=== PATIENT | male | born 1990 | race Caucasian/White ===

== ENCOUNTER 2017-06-06 20:24 | Emergency (ER) | payer BC ==
[2017-06-06] MEDS ORDERED: HYDROcodone/APAP 10-325MG 1 EACH TAB PO ONE (20:45)
--- NOTE | 2017-06-06 20:49 | ED ---
Head Injury HPI - General Chief complaint: Head Injury Stated complaint: Facial INjury Time Seen by Provider: 06/06/17 20:39 Source: patient Mode of arrival: ambulatory Limitations: no limitations - History of Present Illness Initial comments: 27-year-old male presenting after being struck in the right eye by a baseball at 1 PM today. Patient denies LOC, vomiting, amnesia to event. Denies any blood thinner use. Patient states she took a Motrin and a Vicodin at 2 PM. Denies any change in vision. - Related Data Previous Rx's Medication Instructions Recorded Fluticasone Nasal [place] [Flonase 2 spr EA NOSTRIL DAILY #1 bottle 06/06/17 Nasal [place]] HYDROcodone/APAP 5-325MG [[place] 1 - 2 tab PO Q6HR PRN #30 tab 06/06/17 5-325] Ibuprofen [Motrin] 600 mg PO Q6HR PRN #30 tab 06/06/17 Allergies/Adverse reactions: Allergies Allergy/AdvReac Type Severity Reaction Status Date / Time No Known Allergies Allergy Verified 06/06/17 20:35 Review of Systems ROS Statement: Those systems with pertinent positive or pertinent negative responses have been documented in the HPI. Review of Systems Constitutional: Denies fever, chills Eyes: Denies change in vision, Denies pain Ears, nose, mouth, throat: Denies headaches, Denies sore throat Cardiovascular: Denies chest pain. Denies palpitations Respiratory: Denies shortness of breath, Denies cough Gastrointestinal: Denies abdominal pain. Denies nausea, vomiting, diarrhea. Genitourinary: Denies hematuria, Denies infections Musculoskeletal: Denies pain, Denies swelling Integumentary: Denies rash Neurological: Positive headache, focal weakness, focal numbness Psychiatric: Denies anxiety, Denies depression Hematologic/Lymphatic: Denies easy bleeding or bruising ROS Other: All systems not noted in ROS Statement are negative. Past Medical History Past Medical History: No Reported History History of Any Multi-Drug Resistant Organisms: None Reported Past Surgical History: No Surgical Hx Reported Past Psychological History: No Psychological Hx Reported Smoking Status: Current every day smoker Past Alcohol Use History: Occasional Past Drug Use History: Marijuana General Exam - General Exam Comments Initial Comments: General: Awake, alert, No acute Distress HENT: Normocephalic. Swelling to right temporal area and zygomatic area. No midface instability. No nasal deformity. No battles sign. No hemotympanum. No pain with range of motion of jaw. Extensive swelling right side of face. Eyes: PERRL. EOMI. No scleral icterus. No injected conjunctiva. No hyphema. Bruising around right eye. Neck: Full ROM. No cervical spine tenderness. Chest/Lungs: Clear to auscultation bilaterally. No wheezing, rhonchi, or rales Cardiac: Regular rate, rhythm. No murmurs or rubs Abdomen/GI: [Soft, nontender, nondistended. No rebound, guarding, or rigidity. Musculoskeletal: Full ROM Skin: Warm, dry, intact Neurologic: A/Ox3, no weakness, no sensory deficit, no abnormal gait, no coordination deficit.Trigeminal nerve distribution intact. Limitations: no limitations Course Vital Signs 06/06/17 20:35 Temperature 98.2 F Pulse Rate 90 Respiratory 16 Rate Blood Pressure 129/78 O2 Sat by Pulse 98 Oximetry Medical Decision Making - Medical Decision Making 27-year-old male presenting with facial injury. This exam the patient is awake , alert, no acute distress. VSS. Patient CT showed zygomatic frontal suture and zygomatic maxillary suture fractures as well as an indented fracture of the right zygomatic arch. Small step-off fracture the inferior aspect of the lateral orbital wall. And CT of head showed no acute cranial process. They did read some low-lying cerebellar tonsils. He has no symptoms to correlate with this finding. Spoke with Dr. Garrett, maxillofacial surgeon, who states the patient can follow up in clinic with him in one week. States put him on nasal precautions and give him Flonase. Discussed with the patient was agreeable to plan. He was given return to ER instructions. At this time no further emergent workup is indicated he is stable for outpatient follow-up. Disposition Clinical Impression: Zygomatic fracture, right side, initial encounter for closed fracture, Fracture of lateral wall of orbit, Contusion Disposition: HOME SELF-CARE Condition: Good Instructions: Concussion (ED), Facial Fracture (ED), Facial Contusion (ED) Additional Instructions: Follow up with Dr. Garrett in one week. Call on Thursday to make an appointment. Please Avoid: * Blowing your nose: It is best to wipe away nasal secretions carefully. After 2 weeks, if you must blow your nose, blow gently through both sides at the same time. Do not pinch your nose: do not blow just one side at a time. * Sneezing: If you must sneeze, keep your mouth open and do not pinch your nose closed. * Sucking: Do not drink though a straw. Do not smoke. * Blowing: Do not play a wind instrument. Do not blow up balloons. * Pushing or lifting: Do not lift or push objects weighing more than 20 pounds. * Bending over: Keep your head above the level of your heart. Sleep with your head slightly raised. Slight bleeding from the nose is not uncommon for several days after surgery. Notify the doctor or the surgical assist if you are unable to take any of your medication as prescribed. It is likely that you may be advised to take an antibiotic and decongestant as well as your regular pain medication. You must take these medications as prescribed. Do not stop taking them on your own. If you have a problem with any medication, please call us so that we can make an adjustment for you . Other Instructions: * Over the counter decongestant may be taken. * Antibiotics may be taken as directed. REMEMBER All forms of oral and administered contraception are to be considered unreliable while you are taking any form of antibiotic. * Afrin nasal spray may be taken for 3 days, but after this the nasal spray should be stopped. Prescriptions: Fluticasone Nasal [place] [Flonase Nasal [place]] 2 spr EA NOSTRIL DAILY #1 bottle HYDROcodone/APAP 5-325MG [[place] 5-325] 1 - 2 tab PO Q6HR PRN #30 tab PRN Reason: Pain Ibuprofen [Motrin] 600 mg PO Q6HR PRN #30 tab PRN Reason: Pain Control Is patient prescribed a controlled substance at d/c from ED?: Yes If prescribed controlled substance>3 days was MAPS reviewed?: Yes When asked, does pt state using other controlled substances?: No Referrals: Lani Young DO [REFERRING] - 1-2 days Yvonne Garrett DDS [REFERRING] - 1-2 days
--- NOTE | 2017-06-06 21:36 | CT ---
EXAMINATION TYPE: CT brain wo con DATE OF EXAM: 06/06/2017 COMPARISON: NONE HISTORY: 27-year-old male Right orbital injury from softball. No LOC. TECHNIQUE: Examination was done in axial plane without intravenous contrast. Coronal and sagittal r econstructions performed. CT DLP: 1049.8 mGycm Automated exposure control for dose reduction was used. FINDINGS: There is no evidence of acute intracranial hemorrhage, acute ischemic changes, mass, mass-effect, or extra-axial fluid collection. There is no effacement of cerebral sulci or basal subarachnoid cister ns. There is no hydrocephalus. There is no midline shift. Silva-white matter distinction is preserv ed. There is cerebellar tonsillar ectopia measuring up to 5 mm on the left and 4.3 mm on the right. No fr ank tonsillar beaking. Mastoid air cells well pneumatized. Facial bones reported separately. IMPRESSION: No acute intracranial abnormality seen. Low-lying cerebellar tonsils measuring up to 5 mm below the f oramen magnum. This is indeterminate between benign cerebellar tonsillar ectopia and Chiari I malform ation. No yoselin tonsillar beaking. The former is favored. Correlate for any chronic symptoms in this patient. Facial bones reported separately.
--- NOTE | 2017-06-06 21:45 | CT ---
EXAMINATION TYPE: CT facial bones wo con DATE OF EXAM: 06/06/2017 COMPARISON: NONE HISTORY: 27-year-old male with right orbital injury from softball. No LOC. TECHNIQUE: Contiguous high-resolution axial scanning of the facial bones without IV contrast. Coronal reconstructions performed. CT DLP: 501.9 mGycm Automated exposure control for dose reduction was used. FINDINGS: There is right periorbital preseptal soft tissue contusion. The globes appear symmetric. There is a fracture through the zygomaticofrontal suture and additional vertical fracture through the zygomaticomaxillary suture. Indented segmental fractures of the right zygomatic arch. The apex of th e segmental fracture of the temporalis. Tiny step-off along the inferior aspect of the lateral orbital wall on the right. The maxillary sinus rodriguez, pterygoid plates, nasal bone, and mandible remain intact. Extensive soft tissue contusion along the right side of the face. IMPRESSION: 1. EXTENSIVE SOFT TISSUE CONTUSION ALONG THE RIGHT SIDE OF THE FACE AND RIGHT PERIORBITAL REGION. THE GLOBES REMAIN SYMMETRIC. 2. UNDERLYING RIGHT SIDED ZMC FRACTURE WITH ANGULATED AND INDENTED SEGMENTAL FRACTURE OF THE ZYGOMATI C ARCH WHICH MAY IMPINGE THE TEMPORALIS MUSCLE AND FRACTURES THROUGH THE ZYGOMATICOFRONTAL AND ZYGOMA TICOMAXILLARY SUTURES. 3. ADDITIONAL SMALL FRACTURE ALONG THE INFERIOR ASPECT OF THE RIGHT LATERAL ORBITAL WALL.
[2017-06-06 22:49] VITALS: BP 111/55; PULSE 81; RESP 18; TEMP 98.4
[2017-06-06] MEDS ORDERED: ACET/COD 300 MG/30 MG STARTER PACK 6 TAB BTL PO STA (22:59)
== END 2017-06-06 23:12 | disposition home or self-care (01) ==
LOC: EC 20:24
DX: S02.40EA Zygomatic fracture, right side, initial encounter for closed fracture (principal); S02.81XA Fracture of other specified skull and facial bones, right side, initial encounter for closed fracture; F17.200 Nicotine dependence, unspecified, uncomplicated; W21.03XA Struck by baseball, initial encounter; Y93.64 Activity, baseball
CPT/HCPCS: 70450; 70486; 99284

== ENCOUNTER → 2018-08-02 | Outpatient (CLI) | payer BC ==
--- NOTE | 2018-08-02 10:08 | US ---
EXAMINATION TYPE: US abdomen complete DATE OF EXAM: 08/02/2018 COMPARISON: NONE CLINICAL HISTORY: 28-year-old male R85.0 Increased pancreatic lipase. TECHNIQUE: Multiple sonographic images of the abdomen are obtained. FINDINGS: EXAM MEASUREMENTS: Liver Length: 14.6 cm Gallbladder Wall: 0.2 cm CBD: 0.2 cm Spleen: 12.5 cm Right Kidney: 12.0 x 4.6 x 4.5 cm Left Kidney: 11.7 x 4.8 x 5.0 cm Termination Clerk notes: Severe overlying bowel gas obscuring structures. Pancreas: mostly obscured by bowel gas Liver: Visualized portions show no gross abnormality. Some areas are obscured due to extensive overly ing bowel gas Gallbladder: wnl Evidence for sonographic Temple's sign: No CBD: wnl Spleen: wnl Right Kidney: No hydronephrosis. Left Kidney: No hydronephrosis. Upper IVC: wnl Abd Aorta: wnl IMPRESSION: 1. Technically limited exam due to prominent bowel gas shadowing. 2. Suboptimal visualization of the pancreas and portions of the liver. Otherwise, unremarkable sonogr aphic examination of the abdomen.
[2018-08-02 10:25] LABS: Basophils % (A) 1 %; Eosinophils # (A) 0.2 k/uL (0-0.7); Eosinophils % (A) 3 %; HGB 15.1 gm/dL (13.0-17.5); Lymphocytes # (A) 1.7 k/uL (1.0-4.8); Lymphocytes % (A) 29 %; MCH 29.2 pg (25.0-35.0); MCHC 32.2 g/dL (31.0-37.0); MCV 90.8 fL (80.0-100.0); Mean Platelet Volume 7.8; Monocytes # (A) 0.3 k/uL (0-1.0); Monocytes % (A) 5 %; Neutrophils # (A) 3.7 k/uL (1.3-7.7); Neutrophils % (A) 61 %; Platelet Count 225 k/uL (150-450); RBC 5.18 m/uL (4.30-5.90); RDW 14.8 % (11.5-15.5); WBC 6.1 k/uL (3.8-10.6)
[2018-08-02 10:32] LABS: ALT 38 U/L (21-72); AST 31 U/L (17-59); African American GFR (CKD) >90 (>60 ml/min/1.73 sqM); Albumin 4.8 g/dL (3.5-5.0); Alkaline Phosphatase 56 U/L (38-126); Amylase 49 U/L (30-110); Anion Gap 10 mmol/L; Blood Urea Nitrogen 12 mg/dL (9-20); Calcium 9.8 mg/dL (8.4-10.2); Carbon Dioxide 27 mmol/L (22-30); Chloride 106 mmol/L (98-107); Glucose 94 mg/dL (74-99); Lipase 56 U/L (23-300); Potassium 4.7 mmol/L (3.5-5.1); Sodium 143 mmol/L (137-145); Total Bilirubin 0.4 mg/dL (0.2-1.3); Total Protein 7.3 g/dL (6.3-8.2)
[2018-08-02 10:39] LABS: Appearance,Urine Clear (Clear); Bilirubin,Urine Negative (Negative); Blood,Urine Negative (Negative); Color,Urine Yellow; Glucose,Urine (UA) Negative (Negative); Ketones,Urine Negative (Negative); Leukocyte Esterase,Urine Negative (Negative); Nitrite,Urine Negative (Negative); PH, Urine 6.5 (5.0-8.0); Protein,Urine Negative (Negative); Specific Gravity,Urine 1.018 (1.001-1.035); Urobilinogen,Urine <2.0 mg/dL (<2.0)
--- NOTE | 2018-08-02 13:27 | CT ---
EXAMINATION TYPE: CT abdomen pelvis wo/w con DATE OF EXAM: 08/02/2018 COMPARISON: NONE HISTORY: 28-year-old male Hematuria, Increase Pancreatic Lipase TECHNIQUE: Contiguous axial scanning of the abdomen and pelvis before and after administration of 100 ml Isovue 300 IV contrast. Delayed images through the kidneys and coronal/sagittal reconstructions performed. CT DLP: 1958 mGycm Automated exposure control for dose reduction was used. FINDINGS: Heart normal size without pericardial effusion. Lung bases clear without pleural effusion. There may be mild fatty infiltration of the liver. The appearance is not as extensive on CT as it was on ultrasound performed earlier today. Portal venous system is patent. No biliary ductal dilatation. Gallbladder, adrenal glands, spleen with hilar splenule, pancreas appear within normal limits. No nephrolithiasis or hydronephrosis. No suspicious renal lesion seen. Symmetric uptake and excretion of contrast from the kidneys. No dilated small bowel, free fluid, or free air. Oral contrast progressed to the mid sigmoid colon. Appendix is normal. No mesenteric or retroperitoneal lymphadenopathy. Mild stool within the sigmoid colon. No pericolonic inflammatory change. Mild circumferential bladder wall thickening may be secondary to incomplete distention. Prostate glan d mildly prominent at 4.4 cm wide. Trace right-sided hydrocele partially visualized. No abnormal flui d collection otherwise seen in the pelvis or pelvic lymphadenopathy. Bones: No osseous destructive process. IMPRESSION: 1. NO NEPHROLITHIASIS OR HYDRONEPHROSIS. NORMAL ENHANCEMENT OF THE KIDNEYS. 2. MILD CIRCUMFERENCE OF BLADDER WALL THICKENING MAY BE SECONDARY TO INCOMPLETE DISTENTION. CORRELATE TO EXCLUDE CYSTITIS. 3. NORMAL CT APPEARANCE TO THE PANCREAS (history on patient's ultrasound performed today stated incre ased lipase levels).
== END | disposition home or self-care (01) ==
LOC: RADUSWWP 08:59
PROVIDERS: ATTEND Family Medicine
DX: N30.90 Cystitis, unspecified without hematuria (principal); R11.10 Vomiting, unspecified; R85.0 Abnormal level of enzymes in specimens from digestive organs and abdominal cavity; R31.0 Gross hematuria
CPT/HCPCS: 80053; 82150; 83690; 85025; 81003; 76700; 74178; Q9967; 88108